=== PATIENT | male | born 1965 | race Caucasian/White ===

== ENCOUNTER 2016-10-08 10:42 | Inpatient (IN) | payer OTHER ==
[~2016-10-08] VITALS: Ht 180.3 cm; Wt 100.3 kg
[2016-10-08 10:53] VITALS: BP 139/96; PULSE 81; RESP 17; TEMP 99.5; O2SAT 98
[2016-10-08] MEDS ORDERED: GLIM1TAB PO (11:10)
[2016-10-08] MEDS ORDERED: PANT20TA2 PO (11:10)
[2016-10-08] MEDS ORDERED: HYDR12.57 PO (11:10)
[2016-10-08] MEDS ORDERED: METF500T PO (11:10)
[2016-10-08] MEDS ORDERED: DOXY100C PO (11:10)
[2016-10-08] MEDS ORDERED: LISI2.5T3 PO (11:10)
[2016-10-08] MEDS ORDERED: CIPR500T2 PO (11:10)
[2016-10-08] MEDS ORDERED: SODIUM CHLOR 0.9% 1000 ML INJ 1,000 ML IV SCH (11:16)
[2016-10-08 11:20] VITALS: O2SAT 98
[2016-10-08] MEDS ORDERED: PIPERACIL-TAZO 3.375 GM PREMIX 50 ML IV ONE (11:30)
[2016-10-08] MEDS ORDERED: SODIUM CHLORIDE 0.9% FLUSH 10 ML FLUSH IV FLUSH PRN ×2 (11:30→14:00)
[2016-10-08] MEDS ORDERED: MORPHINE SULFATE 8 MG/ML INJ IV PUSH ONE (11:30)
[2016-10-08 11:37] LABS: AUTOMATED NEUTROPHIL # 8.7 TH/MM3 (1.8-7.7); BASOPHIL # 0.1 TH/MM3 (0-0.2); BASOPHIL % 0.9 % (0.0-2.0); EOSINOPHIL % 0.1 % (0.0-4.0); HEMATOCRIT 47.6 % (39.0-51.0); HEMO FLAGS DIFF FINAL; LYMPH % 11.8 % (9.0-44.0); LYMPHOCYTE # 1.3 TH/MM3 (1.0-4.8); MEAN CELL VOLUME 87.9 FL (80.0-100.0); MEAN CORPUSCULAR HEMOGLOBIN 28.8 PG (27.0-34.0); MEAN CORPUSCULAR HGB CONC 32.7 % (32.0-36.0); MONO % 9.2 % (0.0-8.0); PLATELET COUNT 207 TH/MM3 (150-450); RED BLOOD COUNT 5.42 MIL/MM3 (4.50-5.90); RED CELL DISTRIBUTION WIDTH 12.4 % (11.6-17.2); WHITE BLOOD COUNT 11.1 TH/MM3 (4.0-11.0)
[2016-10-08 11:44] LABS: CHLORIDE 100 MEQ/L (98-107); POTASSIUM 3.6 MEQ/L (3.5-5.1); SODIUM (NA) 140 MEQ/L (136-145)
[2016-10-08 11:47] LABS: ANION GAP 10 MEQ/L (5-15); BICARBONATE 30.2 MEQ/L (21.0-32.0); BLOOD UREA NITROGEN 11 MG/DL (7-18)
[2016-10-08 11:50] LABS: ALT (GPT) 49 U/L (12-78); AST (GOT) 34 U/L (15-37); GLOMERULAR FILTRATION RATE 64 ML/MIN (>89)
[2016-10-08 11:53] LABS: ALKALINE PHOSPHATASE 82 U/L (45-117)
[2016-10-08 12:00] LABS: BLOOD, URINE NEG (NEG); GLUCOSE,URINE NEG (NEG); KETONE, URINE NEG (NEG); NITRITE,URINE NEG (NEG); PH, URINE 5.5 (5.0-8.5)
[2016-10-08 12:03] LABS: METHOD OF COLLECTION CLEAN CATCH; URINE COLOR YELLOW (YELLW/STRAW)
[2016-10-08 12:05] LABS: COMMENT (UR) CULT NOT INDICATED; COMMENT2 (UR) MUCOUS PRESENT; CULTURE IF INDICATED CULT NOT INDICATED; SQUAMOUS EPITHELIAL CELL URINE 0-5 /hpf (0-5)
[2016-10-08] MEDS ORDERED: IOHEXOL 350 MG/ML 10 ML VIAL (for RAD DIAG) IV ONE (12:28)
--- NOTE | 2016-10-08 12:52 | RADHPO ---
EXAM DATE/TIME: 10/08/2016 11:49 [facility] COMPARISON: No previous studies available for comparison. INDICATIONS : Abdominal pain. MEDICAL HISTORY : Diverticulitis. SURGICAL HISTORY : None. ENCOUNTER: Initial ACUITY: 2 days PAIN SCORE: 6/10 LOCATION: abdomen. FINDINGS: Single upright AP view of the abdomen. Scattered bowel gas. No evidence of free air. CONCLUSION: No evidence of free air. Ki Sepulveda MD on October 08, 2016 at 12:50 Board Certified Radiologist. This report was verified electronically.
--- NOTE | 2016-10-08 12:54 | PD ---
HPI Chief Complaint: Abdominal Pain Time Seen by Provider: 11:00 Travel History International Travel<30 days: No Contact w/Intl Traveler<30days: No Traveled to known affect area: No History of Present Illness HPI The patient's 50 years old. He was sent from an urgent care clinic with a concern for perforated bowel. Several hours prior to ER arrival he developed pain in the left lower quadrant primarily and he takes Cipro. He has a history of diverticulitis including diverticulitis with abscess. He's had no fever nausea or vomiting. The pain is much worse with palpation. It's mild and constant and severe with palpation. PFSH Past Medical History High Cholesterol: Yes Diabetes: Yes Patient Takes Glucophage: Yes Diminished Hearing: No Diverticulitis: Yes Gastrointestinal Disorders: Yes (IBS) Hypertension: Yes Tetanus Vaccination: > 5 Years Influenza Vaccination: Yes ?: Not Past Surgical History Abdominal Surgery: Yes (HERNIA REPAIR) Appendectomy: Yes Cholecystectomy: Yes Social History Alcohol Use: Yes (RARELY) Tobacco Use: No Substance Use: No Allergies-Medications (Allergen,Severity, Reaction): Coded Allergies: Hydrocortisone (Verified Allergy, Severe, 10/08/16) Sulfa (Verified Allergy, Severe, 10/08/16) Flagyl (Verified Allergy, Mild, NAUSEA, 10/08/16) Reported Meds & Prescriptions Reported Meds & Active Scripts Active Reported Ciprofloxacin (Ciprofloxacin HCl) 500 Mg Tab 500 Mg PO BID Doxycycline Hyclate 100 Mg Cap 100 Mg PO BID Metformin (Metformin HCl) 500 Mg Tab Unknown Dose PO DIRECTED With meals Hydrochlorothiazide 12.5 Mg Cap Unknown Dose PO DIRECTED Pantoprazole (Pantoprazole Sodium) 20 Mg Tab Unknown Dose PO DIRECTED Lisinopril 2.5 Mg Tab Unknown Dose PO DIRECTED Glimepiride 1 Mg Tab Unknown Dose PO DIRECTED Take with breakfast or first main meal Review of Systems Except as stated in HPI: all other systems reviewed are Neg General / Constitutional: No: Fever Physical Exam Narrative GENERAL: 50-year-old male well-nourished well-developed pleasant SKIN: Focused skin assessment warm/dry. HEAD: Atraumatic. Normocephalic. EYES: Pupils equal and round. No scleral icterus. No injection or drainage. ENT: No nasal bleeding or discharge. Mucous membranes pink and moist. NECK: Trachea midline. No JVD. CARDIOVASCULAR: Regular rate and rhythm. No murmur appreciated. RESPIRATORY: No accessory muscle use. Clear to auscultation. Breath sounds equal bilaterally. GASTROINTESTINAL: Marked tenderness to palpation left lower quadrant. Abdomen is otherwise soft. MUSCULOSKELETAL: No obvious deformities. No clubbing. No cyanosis. No edema. NEUROLOGICAL: Awake and alert. No obvious cranial nerve deficits. Motor grossly within normal limits. Normal speech. PSYCHIATRIC: Appropriate mood and affect; insight and judgment normal. Data Data Last Documented VS Vital Signs Date Time Temp Pulse Resp B/P Pulse Ox O2 Delivery O2 Flow Rate FiO2 10/08/16 11:20 98 Room Air 10/08/16 10:53 99.5 81 17 139/96 Vital signs reviewed Orders Complete Blood Count With Diff (10/08/16 11:16) Comprehensive Metabolic Panel (10/08/16 11:16) Lipase (10/08/16 11:16) Lactic Acid (10/08/16 11:16) Urinalysis - C+S If Indicated (10/08/16 11:16) Ct Abd/Pel W Iv Contrast(Rout) (10/08/16 11:16) Iv Access Insert/Monitor (10/08/16 11:16) Ecg Monitoring (10/08/16 11:16) Oximetry (10/08/16 11:16) Sodium Chlor 0.9% 1000 Ml Inj (Ns 1000 M (10/08/16 11:16) Sodium Chloride 0.9% Flush (Ns Flush) (10/08/16 11:30) Abdomen, Upright Only (10/08/16 11:16) Piperacil-Tazo 3.375 Gm Premix (Zosyn 3. (10/08/16 11:30) Morphine Inj (Morphine Inj) (10/08/16 11:30) Iohexol 350 Inj (Omnipaque 350 Inj) (10/08/16 12:28) Labs Laboratory Tests Test 10/08/16 10/08/16 11:25 11:40 White Blood Count 11.1 TH/MM3 Red Blood Count 5.42 MIL/MM3 Hemoglobin 15.6 GM/DL Hematocrit 47.6 % Mean Corpuscular Volume 87.9 FL Mean Corpuscular Hemoglobin 28.8 PG Mean Corpuscular Hemoglobin 32.7 % Concent Red Cell Distribution Width 12.4 % Platelet Count 207 TH/MM3 Mean Platelet Volume 8.9 FL Neutrophils (%) (Auto) 78.0 % Lymphocytes (%) (Auto) 11.8 % Monocytes (%) (Auto) 9.2 % Eosinophils (%) (Auto) 0.1 % Basophils (%) (Auto) 0.9 % Neutrophils # (Auto) 8.7 TH/MM3 Lymphocytes # (Auto) 1.3 TH/MM3 Monocytes # (Auto) 1.0 TH/MM3 Eosinophils # (Auto) 0.0 TH/MM3 Basophils # (Auto) 0.1 TH/MM3 CBC Comment DIFF FINAL Differential Comment Sodium Level 140 MEQ/L Potassium Level 3.6 MEQ/L Chloride Level 100 MEQ/L Carbon Dioxide Level 30.2 MEQ/L Anion Gap 10 MEQ/L Blood Urea Nitrogen 11 MG/DL Creatinine 1.20 MG/DL Estimat Glomerular Filtration 64 ML/MIN Rate Random Glucose 154 MG/DL Lactic Acid Level 1.6 mmol/L Calcium Level 8.5 MG/DL Total Bilirubin 1.0 MG/DL Aspartate Amino Transf 34 U/L (AST/SGOT) Alanine Aminotransferase 49 U/L (ALT/SGPT) Alkaline Phosphatase 82 U/L Total Protein 7.5 GM/DL Albumin 3.9 GM/DL Lipase 92 U/L Urine Collection Type CLEAN CATCH Urine Color YELLOW Urine Turbidity SLIGHT Urine pH 5.5 Urine Specific [place] 1.010 Urine Protein NEG mg/dL Urine Glucose (UA) NEG mg/dL Urine Ketones NEG mg/dL Urine Occult Blood NEG Urine Nitrite NEG Urine Bilirubin NEG Urine Leukocyte Esterase NEG Urine Squamous Epithelial 0-5 /hpf Cells Urine Amorphous Sediment FEW Microscopic Urinalysis Comment CULT NOT INDICATED Urine Collection Time 1140 MDM Medical Decision Making Medical Screen Exam Complete: Yes Emergency Medical Condition: Yes Medical Record Reviewed: Yes Differential Diagnosis Constipation, Gastritis, Acute Cholecystitis, Biliary Colic, Pancreatitis, REYEZ , Hepatitis, Bowel Obstruction, Cystitis, Mesenteric Ischemia, AAA, Appendicitis , Renal Stone/Hydronephrosis, GERD, perforated viscous Narrative Course CBC & BMP Diagram 10/08/16 11:25 LA 1.6 LFTs normal Lipase normal UA: no UTI The patient has diverticulitis. Zosyn started. He'll be admitted for IV antibiotics and pain medication. d/w Dr Zepeda Diagnosis Primary Impression: Diverticulitis Qualified Code: K57.32 - Diverticulitis of large intestine without perforation or abscess without bleeding Admitting Information Admitting Physician Requests: Admit Tate Abarca MD Oct 08, 2016 12:54
--- NOTE | 2016-10-08 13:28 | RADHPO ---
EXAM DATE/TIME: 10/08/2016 12:18 [facility] COMPARISON: No previous studies available for comparison. INDICATIONS : Left lower abdominal pain with nausea, vomiting and diarrhea. IV CONTRAST: 95 cc Omnipaque 350 (iohexol) IV ORAL CONTRAST: No oral contrast ingested. RADIATION DOSE: 18.06 CTDIvol (mGy) MEDICAL HISTORY : Hypertension. Diabetes. SURGICAL HISTORY : Appendectomy. Cholecystectomy.Hernia repair. ENCOUNTER: Initial ACUITY: 2 days PAIN SCALE: 4/10 LOCATION: Left lower quadrant TECHNIQUE: Volumetric scanning of the abdomen and pelvis was performed. Using automated exposure control and ad justment of the mA and/or kV according to patient size, radiation dose was kept as low as reasonably achievable to obtain optimal diagnostic quality images. FINDINGS: LOWER LUNGS: The visualized lower lungs are clear. LIVER: Homogeneous density without lesion. There is no dilation of the biliary tree. No calcified gallston es. SPLEEN: Normal size without lesion. PANCREAS: Within normal limits. KIDNEYS: Normal in size and shape. There is no mass, stone or hydronephrosis. ADRENAL GLANDS: Within normal limits. VASCULAR: There is no aortic aneurysm. BOWEL/MESENTERY: Multiple colonic diverticula. Marked wall thickening and adjacent stranding slight hazy opacity in th e mid sigmoid colon. A second area measures 3.6 cm in length. No defined peripherally enhancing drain able fluid collection. No free air. No bowel dilatation. ABDOMINAL WALL: Within normal limits. RETROPERITONEUM: There is no lymphadenopathy. BLADDER: No wall thickening or mass. REPRODUCTIVE: Within normal limits. INGUINAL: There is no lymphadenopathy or hernia. MUSCULOSKELETAL: Within normal limits for patient age. CONCLUSION: Severe inflammatory findings in wall thickening of the mid sigmoid colon indicating acute diverticuli tis. No evidence of drainable abscess or free air. Ki Sepulveda MD on October 08, 2016 at 13:23 Board Certified Radiologist. This report was verified electronically.
[2016-10-08] MEDS: SODIUM CHLOR 0.9% 1000 ML INJ 1,000 ML IV SCH (14:09)
[2016-10-08] MEDS ORDERED: GLUCAGON 1 MG/ML VIAL OTHER PRN (14:15)
[2016-10-08] MEDS ORDERED: DEXTROSE 50% IN WATER 50 ML VIAL(D50) IV PUSH PRN (14:15)
[2016-10-08 14:17] VITALS: BP 148/90; PULSE 82; RESP 14; TEMP 99.2; O2SAT 94
[2016-10-08] MEDS: PANTOPRAZOLE SODIUM 40 MG VIAL IV PUSH SCH (14:18)
[2016-10-08] MEDS ORDERED: ONDANSETRON HCL 4 MG/2 ML VIAL IV PRN (15:00)
[2016-10-08] MEDS ORDERED: ACETAMINOPHEN 325 MG TAB PO PRN (15:00)
[2016-10-08] MEDS ORDERED: ACETAMINOPHEN/HYDROcodone 325 MG/5 MG TAB PO PRN (15:00)
[2016-10-08] MEDS ORDERED: HYDROmorphone HCL PF 1 MG/ML VIAL IV PRN (15:00)
[2016-10-08] MEDS: METFORMIN HOLD POST IV CONTRAST SCH (16:00)
[2016-10-08] MEDS: INSULIN ASPART SUPPLEMENTAL SCALE SQ SCH ×2 (16:00→21:00)
[2016-10-08] MEDS: KETOROLAC TROMETHAMINE 30 MG/ML (IVP) VIAL IV PUSH PRN (16:34)
[2016-10-08 18:02] VITALS: BP 159/97; PULSE 84; RESP 15; TEMP 100.6; O2SAT 93
[2016-10-08] MEDS: PIPERACIL-TAZO 3.375 GM PREMIX 50 ML IV SCH (18:05)
[2016-10-08 20:00] VITALS: BP 144/91; PULSE 78; RESP 18; TEMP 99.1; O2SAT 96
--- NOTE | 2016-10-08 20:37 | MH ---
cc: AMALIA FRANK DATE OF ADMISSION 10/08/2016 ADMISSION DIAGNOSIS Diverticulitis. HISTORY OF PRESENT ILLNESS Mr. Arroyo is a very pleasant gentleman who presented to the emergency room after developing worsening abdominal pain last night that increased during the evening. He states he has a prior history of diverticulitis x2 in the past and this was similar to that. Apparently he was doing quite well for him, until last night they went out to dinner. After dinner he started having cramping and diarrhea. He has a history of frequent diarrhea which he attributes to his metformin. The diarrhea, however, persisted. Typically it improves as well as cramping. It has intensified during the night. He actually had an episode of nausea and finally presented to the emergency room. He denies any chills or fevers. He did not have any actual emesis. He has not had any more diarrhea since last evening. He tells me he has had two prior bouts of diverticulitis in the past. The last one was two years ago after which he had a colonoscopy that did show moderate sigmoid diverticulitis in his colon. He did have some antibiotics at home, Cipro and doxycycline which he took when he started suspecting that he had the diverticulitis. Apparently he has this on hand to take as soon as he starts feeling any twinges of a new episode. PAST MEDICAL HISTORY Significant for: 1. Type 2 diabetes mellitus. 2. Hyperlipidemia. 3. Hypertension. 4. Reflux. 5. And as stated the diverticulitis. PAST SURGICAL HISTORY Surgical history includes: 1. Appendectomy. 2. Hernia repair. 3. And he has had inner ear surgery as a child. ALLERGIES INCLUDE SULFA WHICH IS A RASH AND FLAGYL WHICH CAUSES SEVERE STOMACH UPSET AND NAUSEA. MEDICATIONS Include: 1. Atorvastatin 10 mg daily which was recently held secondary to muscle pain in his legs. 2. Glimepiride 1 mg daily. 3. Hydrochlorothiazide 12.5 mg daily. 4. Lisinopril 20 mg daily. 5. Metformin extended release 750 mg daily. 6. Pantoprazole. SOCIAL HISTORY Habits, he does not smoke. He rarely consumes alcohol. He is . His is here in the room with him. 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 He has been active recently playing softball. REVIEW OF SYSTEMS He denies as stated any fevers or chills. He has had no cough or chest pain. No shortness of breath. When he plays softball no palpitations. He does state that he has chronic diarrhea which is regular for him. He thinks it might be partially related to the metformin. He did not know that his stools were black or bloody. He does tell me he has been voiding well. He does say a little bit of burning with his urination. He does occasionally get some muscle cramps in his legs and twitching which he says is the reason why they actually stopped the metformin. PHYSICAL EXAMINATION VITAL SIGNS: On physical exam temperature is 100.6, pulse of 84, respirations 15, blood pressure 159/97, pulse ox on room air is 93%. GENERAL: He has a very pleasant gentleman lying still in the hospital bed. He is speaking in full sentences. He does not appear to be in any acute distress. HEENT: He is normocephalic and atraumatic. EOM is intact. He does have a moist oral mucosa. NECK: His neck is supple. LUNGS: His lungs are clear to auscultation. He is not wheezing. HEART: his heart is regular. He is not tachycardiac. ABDOMEN: His abdomen has slightly diminished bowel sounds. He is tender to palpation more in the lower mid abdomen, in the right lower abdomen. He does not have any rebound or guarding. Left lower quadrant is not as tender as the right or the lower mid abdomen. EXTREMITIES: Show no clubbing, cyanosis or edema. LABORATORY DATA Lab work that was done when he came in showed a white count of 11.1, hemoglobin of 15.6, hematocrit of 47.6, neutrophil count was 80. Sodium was 140, potassium 3.6, BUN 11, creatinine was 1.2. GFR was 64, random glucose was 154, lactic acid was 1.6. UA was negative. IMAGING X-ray that was done in the ER did not show any evidence of free air. CT scan showed multiple colonic diverticula, marked wall thickening and adjacent stranding, with slight hazy opacity in the mid sigmoid colon. They did not see any defined peripherally enhancing drainable fluid collection. No free air or dilatation. The conclusion was severe inflammatory changes, findings of wall thickening of the mid sigmoid colon indicating acute diverticulitis. ASSESSMENT/PLAN Acute diverticulitis. The patient has been started on Zosyn in the emergency room and we will continue the antibiotics. He does not want to take any narcotics for pain control. He did get some improvement with his pain level with the Toradol. We will continue using that, using it judiciously and monitoring his renal function. Continue with IV fluids. For his type 2 diabetes go ahead and cover him with a sliding scale for now until he starts eating solids. Blood pressure, I will resume his lisinopril. Hold his hydrochlorothiazide at this point. We did discuss trying to ambulate as much as possible around the room. We will do an SCDs for prophylaxis. For his history of reflux I have started him on some pantoprazole. Further recommendations as the case develops. MD MEHREEN Matos/KK /8:02 PM /8:21 PM
[2016-10-08] MEDS: LISINOPRIL 20 MG TAB PO SCH (21:23)
[2016-10-08] MEDS: SODIUM CHLORIDE 0.9% FLUSH 10 ML FLUSH IV FLUSH SCH (21:24)
[2016-10-09] VITALS: BP 123/75; PULSE 85; RESP 16; TEMP 98.2; O2SAT 94
[2016-10-09] MEDS: SODIUM CHLOR 0.9% 1000 ML INJ 1,000 ML IV SCH ×4 (00:24→21:18)
[2016-10-09] MEDS: PIPERACIL-TAZO 3.375 GM PREMIX 50 ML IV SCH ×5 (00:27→23:58)
[2016-10-09] MEDS: KETOROLAC TROMETHAMINE 30 MG/ML (IVP) VIAL IV PUSH PRN ×4 (02:51→22:29)
[2016-10-09] MEDS: INSULIN ASPART SUPPLEMENTAL SCALE SQ SCH ×4 (06:08→21:00)
[2016-10-09 06:46] LABS: BASOPHIL % 0.3 % (0.0-2.0); EOSINOPHIL % 0.3 % (0.0-4.0); HEMATOCRIT 41.7 % (39.0-51.0); HEMO FLAGS DIFF FINAL; LYMPH % 17.3 % (9.0-44.0); LYMPHOCYTE # 1.7 TH/MM3 (1.0-4.8); MEAN CORPUSCULAR HEMOGLOBIN 30.1 PG (27.0-34.0); MEAN CORPUSCULAR HGB CONC 33.8 % (32.0-36.0); MONO % 8.6 % (0.0-8.0); NEUT % 73.5 % (16.0-70.0); PLATELET COUNT 161 TH/MM3 (150-450); RED BLOOD COUNT 4.68 MIL/MM3 (4.50-5.90); RED CELL DISTRIBUTION WIDTH 12.2 % (11.6-17.2); WHITE BLOOD COUNT 9.5 TH/MM3 (4.0-11.0)
[2016-10-09 06:57] LABS: POTASSIUM 3.5 MEQ/L (3.5-5.1)
[2016-10-09 07:04] LABS: BICARBONATE 31.6 MEQ/L (21.0-32.0)
[2016-10-09 07:51] LABS: CALCIUM-PROTEIN CORRECTED 7.6 MG/DL (8.5-10.1)
[2016-10-09 08:00] VITALS: BP 139/91; PULSE 68; RESP 18; TEMP 98.9; O2SAT 97
[2016-10-09] MEDS: SODIUM CHLORIDE 0.9% FLUSH 10 ML FLUSH IV FLUSH SCH ×2 (08:41→21:00)
[2016-10-09] MEDS: LISINOPRIL 20 MG TAB PO SCH (08:41)
--- NOTE | 2016-10-09 11:46 | HHI.PR ---
Subjective Remarks tolerating clear liquids, had bm last pm, ambulating to bathroom. toradol controlling pain Objective Vitals Vital Signs Date Time Temp Pulse Resp B/P Pulse Ox O2 Delivery O2 Flow Rate FiO2 10/09/16 08:00 98.9 68 18 139/91 97 10/09/16 00:00 98.2 85 16 123/75 94 10/08/16 20:00 99.1 78 18 144/91 96 10/08/16 18:02 100.6 84 15 159/97 93 10/08/16 14:17 99.2 82 14 148/90 94 Room Air 10/08/16 10/08/16 10/09/16 15:00 23:00 07:00 Intake Total 1000 ml 0 ml 1400 ml Output Total 250 ml Balance 750 ml 0 ml 1400 ml Intake Oral 0 ml IV Total 1000 ml 1400 ml Output Urine Total 250 ml # Voids 1 0 # Bowel Movements 0 Result Diagram: 10/09/16 0547 10/09/16 0547 Imaging Last Impressions Abdomen/Pelvis CT 10/08/16 1116 Signed Impressions: Service Date/Time: Saturday, October 08, 2016 12:18 - CONCLUSION: Severe inflammatory findings in wall thickening of the mid sigmoid colon indicating acute diverticulitis. No evidence of drainable abscess or free air. Ki Sepulveda MD Abdomen X-Ray 10/08/16 1116 Signed Impressions: Service Date/Time: Saturday, October 08, 2016 11:49 - CONCLUSION: No evidence of free air. Ki Sepulveda MD Objective Remarks lying in bed, nad cta tess rrr not tachycardic good bowel sounds all quadrants, decreased tenderness to palpation A/P Problem List: (1) Diverticulitis Status: Acute Plan: on zosyn, clinically improving (2) Type 2 diabetes mellitus Status: Chronic Plan: on ssi (3) Hyperlipidemia Status: Chronic Plan: off statins due to leg pain (4) Hypertension Status: Chronic Plan: cont lisinopril Problem Qualifiers (1) Diverticulitis: Qualified Code: K57.32 - Diverticulitis of large intestine without perforation or abscess without bleeding (2) Hypertension: Qualified Code: I10 - Essential hypertension Maria Eugenia Zepeda MD October 09, 2016 11:46
[2016-10-09 12:00] VITALS: BP 140/91; PULSE 74; RESP 18; TEMP 97.3; O2SAT 97
[2016-10-09] MEDS: PANTOPRAZOLE SODIUM 40 MG VIAL IV PUSH SCH (15:45)
[2016-10-09] MEDS: METFORMIN HOLD POST IV CONTRAST SCH (16:00)
[2016-10-09 20:00] VITALS: BP 142/91; PULSE 80; RESP 21; TEMP 100.3; O2SAT 93
[2016-10-09 21:24] VITALS: TEMP 99.4
[2016-10-10] VITALS: BP 125/79; PULSE 71; RESP 18; TEMP 97.4; O2SAT 95
[2016-10-10] MEDS: PIPERACIL-TAZO 3.375 GM PREMIX 50 ML IV SCH (06:10)
[2016-10-10] MEDS: SODIUM CHLOR 0.9% 1000 ML INJ 1,000 ML IV SCH (06:10)
[2016-10-10] MEDS: INSULIN ASPART SUPPLEMENTAL SCALE SQ SCH (06:15)
[2016-10-10] MEDS: KETOROLAC TROMETHAMINE 30 MG/ML (IVP) VIAL IV PUSH PRN (06:39)
[2016-10-10 08:00] VITALS: BP 137/83; PULSE 71; RESP 18; TEMP 99; O2SAT 97
[2016-10-10] MEDS: LISINOPRIL 20 MG TAB PO SCH (08:17)
[2016-10-10] MEDS: SODIUM CHLORIDE 0.9% FLUSH 10 ML FLUSH IV FLUSH SCH (08:17)
--- NOTE | 2016-10-10 10:53 | HHI.PR ---
Subjective Remarks Tolerated dinner and breakfast this am. Wants to go home. Walked the halls. Still some abdominal discomfort but he feels he can handle it at home. Stools are soft. Has doxycycline and cipro at home that he uses for his diverticular attacks as he cannot take metronidazole. Objective Vitals Vital Signs Date Time Temp Pulse Resp B/P Pulse Ox O2 Delivery O2 Flow Rate FiO2 10/10/16 08:00 99.0 71 18 137/83 97 10/10/16 00:00 97.4 71 18 125/79 95 10/09/16 21:24 99.4 10/09/16 20:00 100.3 80 21 142/91 93 10/09/16 12:00 97.3 74 18 140/91 97 10/09/16 10/09/16 10/10/16 15:00 23:00 07:00 Intake Total 1000 ml 1988 ml 1058 ml Balance 1000 ml 1988 ml 1058 ml Intake Oral 480 ml IV Total 1000 ml 1508 ml 1058 ml # Voids 2 2 # Bowel Movements 0 Result Diagram: 10/09/16 0547 10/09/16 0547 Imaging Last Impressions Abdomen/Pelvis CT 10/08/16 1116 Signed Impressions: Service Date/Time: Saturday, October 08, 2016 12:18 - CONCLUSION: Severe inflammatory findings in wall thickening of the mid sigmoid colon indicating acute diverticulitis. No evidence of drainable abscess or free air. Ki Sepulveda MD Abdomen X-Ray 10/08/16 1116 Signed Impressions: Service Date/Time: Saturday, October 08, 2016 11:49 - CONCLUSION: No evidence of free air. Ki Sepulveda MD Objective Remarks lying in bed, nad cta tess rrr not tachycardic bowel sounds all quadrants, tender to palpation lower abdomen but less so+ scds A/P Problem List: (1) Diverticulitis Status: Acute Plan: on zosyn, clinically improving, tolerating food , feels can handle pain as outpatient will change to po medications (2) Type 2 diabetes mellitus Status: Chronic Plan: on ssi resume oral medications at discharge , he plans to improve carbohydrate intake as outpatient (3) Hyperlipidemia Status: Chronic Plan: off statins due to leg pain (4) Hypertension Status: Chronic Plan: cont lisinopril, hctz as outpatient Discharge Planning discharge home today with f/u later this week with dr fuller Problem Qualifiers (1) Diverticulitis: Qualified Code: K57.32 - Diverticulitis of large intestine without perforation or abscess without bleeding (2) Hypertension: Qualified Code: I10 - Essential hypertension Maria Eugenia Zepeda MD October 10, 2016 10:53
== END 2016-10-10 11:37 | disposition home or self-care (01) | DRG 392 ==
LOC: PHED 10:42 → PHEDA 13:57 → PH3B 15:21
PROVIDERS: ADMIT Family Medicine; ATTEND Family Medicine
DX: K57.32 Diverticulitis of large intestine without perforation or abscess without bleeding (principal); I10 Essential (primary) hypertension; E11.9 Type 2 diabetes mellitus without complications; Z79.84 Long term (current) use of oral hypoglycemic drugs; E78.5 Hyperlipidemia, unspecified; K21.9 Gastro-esophageal reflux disease without esophagitis
CPT/HCPCS: 74000; 74177; 80048; 80053; 81001; 82948; 83605; 83690; 84155; 85025; 96365; C9113; J1885; J2543; J7030; Q9967